=== PATIENT | female | born 1990 | race Caucasian/White ===

== ENCOUNTER 2018-06-15 05:35 | Inpatient (IN) ==
--- OUTSIDE RECORDS SUMMARY | 2018-06-15 05:52 | External Medical Summary | Continuity of Care Document ---
:1990 Author Organization [facility] Address [address] [place], [place] [id number] Phone Care Team Providers Name Role Phone Misael Chandra MD Unavailable Unavailable Allergies, Adverse Reactions, Alerts Substance Reaction Severity Status Substance Type Unknown Medications Medication Instructions Dosage Effective Dates Status Comments (start - stop) 28 mg take 1 tablet by Not Available - Active iron-800 mcg oral route every tablet day Problems Condition Effective Dates (start - stop) Clinical Status Previous Low Transverse - Encounter for suprvsn of normal - , third trimester 31 weeks gestation of - Previous Low Transverse - Encntr screen for infections w sexl - mode of transmiss Encounter for screening for oth - infec/parastc diseases Encounter for suprvsn of normal - , first trimester Encounter For Other Specified - Screening 9 weeks gestation of - Previous Low Transverse - Encounter for suprvsn of normal - , first trimester 13 weeks gestation of - Previous Low Transverse - Encounter for suprvsn of normal - , third trimester 31 weeks gestation of - Previous Low Transverse - Encounter for suprvsn of normal - , second trimester 19 weeks gestation of - Previous Low Transverse - Encounter for suprvsn of normal - , third trimester 28 weeks gestation of - Previous Low Transverse - Encounter for suprvsn of normal - , second trimester 19 weeks gestation of - Previous Low Transverse - Encounter for suprvsn of normal - , third trimester 33 weeks gestation of - Encounter for suprvsn of normal - , second trimester 23 weeks gestation of - Polycystic Ovarian Syndrome Active Human Papilloma Virus Active Procedures Procedure Date OB Visit No Charge - HTML DEVELOPER Results Test Name Date and Time Measure Units Reference Range Abnormal Flag Comments Unknown Advance Directives Directive Yes / No Effective Date File Name Unknown Encounters Encounter Practice Location Reason(s) Diagnoses Date Provider Care Team Description For Visit Members [facility]ader Previous Low Champ-2 Bronwyn Referring In Womens Transverse 5-201 Josie. Provider: Stacy Canela-SectionEncounte 8 700 Josie [address] r for suprvsn of Medical Bronwyn L, 1522, normal , Center [address] [place] [address], third [email or web address] Aaron Yates, weeks gestation 120, [place] [id number], [facility], [place] Nader PINO, tel:[phone] [place], [id number] , [place]. [id number]. tel: tel:[phone] Associates [facility]ader Previous Low Champ-0 Bronwyn Referring In Womens Transverse 7-201 Josie. Provider: Stacy Canela-SectionEncounte 8 700 Josie PO Box r for suprvsn of Medical Bronwyn L, 1522, normal , Center [address] [place], third [email or web address] Aaron Yates, weeks gestation 120, Center [id number], [facility], [place] Nader PINO, tel:[phone] [place], [id number] , [place]. [id number]. tel: tel:[phone] Associates [facility]ader Previous Low Champ-0 Bronwyn Referring In Womens Ultrasound Transverse 7-201 Josie. Provider: Zenon SIMENTAL, C-SectionEncounte 8 700 Josie PO Box r for suprvsn of Medical Bronwyn L, 1522, normal , Center [address] [place], third [email or web address] Dr [facility] Katharine PINO, weeks gestation 120, Center [id number], of Doe, Aaron 120, [place] Nader PINO, tel:[phone] [place], , [place]. [id number]. tel: tel: [phone] Associates Nader Previous Low May-1 Bronwyn Referring In Womens Transverse 8-201 Josie. Provider: Health KAMILLE, C-SectionEncounte 8 700 Josie PO Box r for suprvsn of Medical Bronwyn L, 1522, normal , Center [address] [place], [place] [address], third [email or web address] Aaron Yates, weeks gestation 120, Center [id number], of Doe, [facility] 120, [place] Nader PINO, tel:[phone] [place], , [place]. [id number]. tel: tel: [phone] Cortez Doe Encounter for Apr-1 Miguel Referring In Womens suprvsn of normal 7-201 Dagoberto. 700 Provider: Zenon SIMENTAL, , second 8 Medical Josie PO Box [email or web address] weeks Center Bronwyn L, 1522, gestation of Aaron Yates, 120, Medical Nader PINO, [place] [id number], [place], [facility] 120, [place] [id number] Nader, tel: , [place]. [place], tel: [phone]. [id number] tel:[phone] Cortez Doe Previous Low Mar-1 Bronwyn Referring In Womens Transverse 5-201 Josie. Provider: Zenon SIMENTAL, C-SectionEncounte 8 700 Josie PO Box r for suprvsn of Medical [place]wyn L, 1522, normal , Center [address] [place], [place] [address], second Aaron Yates, [id number] weeks 120, Center [id number], gestation of Nader, [facility] 120, [place] Nader PINO, tel:[phone] [place], , [place]. [id number]. tel: tel:[phone] Associates [facility]ader Previous Low Mar-1 Bronwyn Referring In Womens Ultrasound Transverse 5-201 Josie. Provider: Zenon SIMENTAL, C-SectionEncounte 8 700 Josie PO Box r for suprvsn of Medical Bronwyn L, 1522, normal , Center [address] [place] [address], second , [facility] Katharine PINO, [email or web address] weeks 120, Center [id number], gestation of Doe, [facility] 120, [place] Nader PINO, tel: [phone] [place], , [place]. [id number]. tel: tel:[phone] Associates [facility] Previous Low Feb-0 Bronwyn Referring In Womens Transverse 6-201 Josie. Provider: Zenon SIMENTAL, C-SectionEncounte 8 700 Josie PO Box r for suprvsn of Medical Bronwyn L, 1522, normal , Center [address] [place] [address], first [email or web address] Dr, [facility] [place]TE, weeks gestation 120, Center [id number], of Doe, [facility] 120, [place] Nader PINO, tel: [phone] [place], , [place]. [id number]. tel: tel: [phone] Associates [facility] Previous Low James-0 Bronwyn Referring In Womens Transverse 9-201 Josie. Provider: Zenon SIMENTAL, C-SectionEncntr 8 700 Josie PO Box screen for Medical Bronwyn L, 1522, infections w sexl [facility] [place], mode of [facility] ODETTE, transmissEncounte 120, [place] [id number], r for screening Doe, [facility] 120, [place] for oth Nader PINO, tel: infec/parastc [phone] [place], [facility] , [place]. [id number]. for suprvsn of tel: tel:[phone] normal , [phone] first trimesterEncounte r For Other Specified Screening9 weeks gestation of Family History Family Member Diagnosis Age At Onset Paternal Grandmother Ovarian Cancer Paternal Grandmother Thyroid Disorder No family history of Lung Disease No family history of Colon Cancer No family history of Breast Cancer No family history of Hypertension Father Cardiovascular Disease No family history of Uterine Cancer Maternal Grandmother Stroke No family history of Kidney Disease No family history of Epilepsy No family history of Diabetes No family history of Osteoporosis Immunizations Vaccine Date Status Comments Unknown Payers Payer name Insurance type Covered democrat ID Authorization(s) BC Out Of State [id number] Social History Type Description Quantity Date Captured Alcohol Use Details No Caffeine Use Details Unknown Tobacco Use Status Smoking Status Former smoker Vital Signs Date / Height Weight BMI Pulse Blood Temperature Respiratory Body Head BMI Time: Rate Pressure Rate Surface Circumference percentile Area 272.10 49.7 132/82 -2018 lbs 6 mm[Hg] 2:36 kg/m PM eter (2) 272.10 49.7 -2018 lbs 6 2:21 kg/m PM eter (2) Chief Complaint And Reason For Visit Unknown Chief Complaint And Reason For Visit Reason For Referral Reason For Referral Unknown Plan Of Care Date Type Action Status Appointment Alejandra Sanderson BOOKED Appointment Alejandra Sanderson BOOKED Appointment Maria E Alejandra [facility] R C/S BOOKED Future Order: Radiology Order Ultrasound OB Follow-up ([id number]) Ordered Future Order: Radiology Order Complete OB Ultrasound > 14 Weeks Ordered ([id number]) Date Type Problem Goal Intervention Status Start Date Unknown. History Of Present Illness Encounter Date Complaint History Of Present Illness This patient has no known history of present illness Functional Status Encounter Date Functional Assessment Cognitive Assessment Unknown Medications Administered Medication Instructions Dosage Effective Dates (start - stop) Status Comments Drug Treatment Unknown Instructions Date Instruction Additional Information HIV and other routine tests risk factors identified by history anticipated course of care nutrition and weight gain counseling, special diet toxoplasmosis precautions (cats / raw meat) sexual activity exercise indications for ultrasound influenza vaccine environmental / work hazards travel use of any medications (including supplements, vitamins, herbs, OTC drugs) domestic violence seat belt use childbirth classes / hospital facilities hospital registration genetic testing new ob handbook risks
--- OUTSIDE RECORDS SUMMARY | 2018-06-15 05:52 | External Medical Summary | Continuity of Care Document ---
:1988 Author Organization [facility] Address [address] [place], [place] [id number] Phone Care Team Providers Name Role Phone Misael Chandra MD Unavailable Unavailable Allergies, Adverse Reactions, Alerts Substance Reaction Severity Status Substance Type Unknown Medications Medication Instructions Dosage Effective Dates (start - stop) Status Comments Drug Treatment Unknown Problems Condition Effective Dates (start - stop) Clinical Status Polycystic Ovarian Syndrome Active Human Papilloma Virus Active Procedures Procedure Date Unknown Results Test Name Date and Time Measure Units Reference Range Abnormal Flag Comments Unknown Advance Directives Directive Yes / No Effective Date File Name Unknown Encounters Encounter Practice Location Reason(s) Diagnoses Date Provider Care Team Description For Visit Members [facility] 2017 Marilyn. SIMENTAL, [address] [facility] 1522, [place] Fredrick Yates [place], [facility] 120, [id number], [place] Doe, tel:[phone], 4540 [place]. tel:[phone] Family History Family Member Diagnosis Age At [...] Unknown Payers Payer name Insurance type Covered alliance party ID Authorization(s) Unknown Social History Type Description Quantity Date Captured Alcohol Use Details No Caffeine Use Details Unknown 4 cups per day Tobacco Use Status Unknown Smoking Status Unknown Vital Signs Date / Height Weight BMI Pulse Blood Temperature Respiratory Body Head BMI Time: Rate Pressure Rate Surface Circumference percentile Area Unknown Chief Complaint And Reason For Visit Unknown Chief Complaint And Reason For Visit Reason For Referral Reason For Referral Unknown Plan Of Care Date Type Action Status Appointment Maria E Alejandra BOOKED Date Type Problem Goal Intervention Status Start Date Unknown. History Of Present Illness Encounter Date Complaint History Of Present Illness This patient has no known history of present illness Functional Status Encounter Date Functional Assessment Cognitive Assessment Unknown Medications Administered Medication Instructions Dosage Effective Dates (start - stop) Status Comments Drug Treatment Unknown Instructions Date Instruction Additional Information Unknown
--- OUTSIDE RECORDS SUMMARY | 2018-06-15 05:52 | External Medical Summary | Continuity of Care Document ---
:1988 Author Organization [facility] Address [address] [place], [place] [id number] Phone Care Team Providers Name Role Phone [...] Description For Visit Members [facility] 2017 [address]. 700 [place], [address]22, [place] Fredrick Yates [place], [facility] 120, [id number], [place] Doe, tel:[phone], 6790 [place]. tel:[phone] Family History Family Member Diagnosis Age At [...]
--- OUTSIDE RECORDS SUMMARY | 2018-06-15 05:52 | External Medical Summary | Continuity of Care Document ---
:1990 Author Organization [facility] Address [address] [place], [place] [phone] Phone Care Team Providers Name Role Phone Misael Chandra MD Unavailable Unavailable Allergies, Adverse Reactions, Alerts Substance Reaction Severity Status No Known Drug Allergies Unknown Active Medications Medication Instructions Dosage Effective Dates Status Comments (start - stop) 28 mg take 1 tablet by Not Available - Active iron-800 mcg oral route every tablet day Problems Condition Effective Dates (start - stop) Clinical Status Previous Low Transverse - Encounter for suprvsn of normal - , third trimester 33 weeks gestation of - Previous Low Transverse - Encntr screen for infections w sexl - mode of transmiss Encounter for screening for oth - infec/parastc diseases Encounter for suprvsn of normal - , first trimester Encounter For Other Specified - Screening 9 weeks gestation of - Morbid (severe) obesity due to excess - calories Previous Low Transverse - Encounter For Screening For - Streptococcus B 35 weeks gestation of - Previous Low Transverse [...] gestation of - Previous Low Transverse - Obesity complicating , third - trimester Encounter for suprvsn of normal - , third trimester 35 weeks gestation of - Previous Low Transverse - Encounter for suprvsn of normal - , second trimester 19 weeks gestation of - Encounter for suprvsn of normal - , second trimester 23 weeks gestation of - Polycystic Ovarian Syndrome Active Human Papilloma Virus Active Procedures Procedure Date OB Visit No Charge Results Test Name Date and Time Measure Units Reference Range Abnormal Flag Comments Unknown Advance Directives Directive Yes / No Effective Date File Name Unknown Encounters Encounter Practice Location Reason(s) Diagnoses Date Provider Care Team Description For Visit Members Cortez Doe Morbid (severe) Bronwyn Referring In Womens obesity due to 9-201 Josie. Provider: Zenon SIMENTAL, excess 8 700 Josie PO Box caloriesPrevious Medical Bronwyn L, 152, Low Transverse Center 700 [place], C-SectionEncounte , [facility] Medical [place], r For 120, Center [id number], Screening For Doe, Aaron 120, [place] Streptococcus B35 Nader PINO, tel:2 weeks gestation [id number] [place], [id number] of , [place]. [id number]. tel: tel: [phone] Associates Nader Previous Low Bronwyn Referring In Womens Ultrasound Transverse 9-201 Josie. Provider: Zenon SIMENTAL C-SectionObesity 8 700 Josie PO Box complicating Medical Bronwyn L, 1522, , third Center 700 [place], [address] Dr [place] [facility] [place], r for suprvsn of 120, Center [id number], normal , Doe, [facility] 120, [place] third [email or web address] Nader PINO, tel:[phone] weeks gestation [phone] [place], of , [place]. [id number]. tel: tel:[phone] Cortez Doe Previous Low Champ-2 Bronwyn Referring In Womens Transverse 5-201 Josie. Provider: Health [place], C-SectionEncounte 8 700 Josie PO Box r for suprvsn of Medical Bronwyn L, 1522, normal , Center 700 [place], third [id number] Dr [place] [facility] [place], weeks gestation 120, Center [id number], of Doe, Aaron 120, [place] KSNader, tel:[phone] [place], , [place]. [id number]. tel: tel:[phone] Cortez Doe Previous Low Champ-0 Bronwyn Referring In Womens Transverse 7-201 Josie. Provider: Health KAMILLE, C-SectionEncounte 8 700 Josie PO Box r for suprvsn of Medical Bronwyn L, 1522, normal , Center 700 [place], third [email or web address] Dr [facility] Katharine PINO, weeks gestation 120, Center [id number], of Doe, Aaron 120, [place] Nader PINO, tel:[phone] [place], , [place]. [id number]. tel: tel:[phone] Cortez Doe Previous Low Champ-0 Bronwyn Referring In Womens Ultrasound Transverse 7-201 Josie. Provider: Health KAMILLE, C-SectionEncounte 8 700 Josie PO Box r for suprvsn of Medical Bronwyn L, 1522, normal , Center 700 [place], third [email or web address] Dr [facility] Katharine PINO, weeks gestation 120, Center [id number], of Doe, Aaron 120, [place] Nader PINO, tel:[phone] [place], , [place]. [id number]. tel: tel: [phone] Associates Nader Previous Low May-1 Bronwyn Referring In Womens Transverse 8-201 Josie. Provider: Health KMAILLE, C-SectionEncounte 8 700 Josie PO Box r for suprvsn of Medical Bronwyn L, 1522, normal , Center 700 [place], third [email or web address] Aaron Yates, weeks gestation 120, Center , of Doe, [facility] 120, [place] Nader PINO, tel:[phone] [place], , [place]. [id number]. tel: tel: [phone] Associates Nader Encounter for Apr-1 Miguel Referring In Womens suprvsn of normal 7-201 Dagoberto. 700 Provider: Zenon SIMENTAL, , second 8 Medical Josie PO Box [email or web address] weeks Center [facility] L, 1522, gestation of Aaron Yates [place], 120, Medical Nader PINO, May [id number], [place], [facility] 120, [place] [id number] Nader, tel: , [place]. [place], tel: [phone]. [id number] tel:[phone] Associates Nader Previous Low Mar-1 Bronwyn Referring In Womens Transverse 5-201 Josie. Provider: Zenon SIMENTAL, C-SectionEncounte 8 700 Josie PO Box r for suprvsn of Medical Bronwyn L, 1522, normal , Center 700 [place], second Aaron Yates, [email or web address] weeks 120, Center [id number], gestation of Doe, Aaron 120, [place] Nader PINO, tel:[phone] [place], , [place]. [id number]. tel: tel: [phone] Associates Nader Previous Low Mar-1 Bronwyn Referring In Womens Ultrasound Transverse 5-201 Josie. Provider: Health KAMILLE, C-SectionEncounte 8 700 Josie PO Box r for suprvsn of Medical Bronwyn L, 1522, normal , Center 700 [place], second Aaron Yates, [email or web address] weeks 120, Center , gestation of Nader, [facility] 120, [place] Nader PINO, tel: [phone] [place], , [place]. [id number]. tel: tel: [phone] Associates Nader Previous Low Feb-0 Bronwyn Referring In Womens Transverse 6-201 Josie. Provider: Zenon SIMENTAL, C-SectionEncounte 8 700 Josie PO Box r for suprvsn of Medical Bronwyn L, 1522, normal , Center 700 [place], first [id number] Dr, Aaron PINO, weeks gestation 120, May [id number], of Doe, [facility] 120, [place] Nader PINO, tel: [phone] [place], , [place]. [id number]. tel: tel: [phone] Associates Nader Previous Low James-0 Bronwyn Referring In Womens Transverse 9-201 Josie. Provider: Zenon SIMENTAL, C-SectionEncntr 8 700 Josie PO Box screen for Medical Bronwyn L, 1522, infections w sexl Center 700 [place], mode of Aaron Yates, transmissEncounte 120, May [id number], r for screening [facility] 120, for oth Nader PINO, tel: infec/parastc [phone] [place], [facility] Hospital[facility] , [place]. [id number]. for suprvsn of tel: tel:[phone] normal , [phone] first trimesterEncounte r For Other Specified Screening9 [...] of Osteoporosis Immunizations Vaccine Date Status Comments Tdap completed Source: New Immunization Record Payers Payer name Insurance type Covered green party ID Authorization(s) BCBS Out Of State [id number] BCBS Out Of [place] [id number] Social History Type Description Quantity Date Captured Alcohol Use Details No Caffeine Use Details Unknown Tobacco Use Status Smoking Status Former smoker Vital Signs Date / Height Weight BMI Pulse Blood Temperature Respiratory Body Head BMI Time: Rate Pressure Rate Surface Circumference percentile Area 274.50 50.2 -2018 lbs 0 3:15 kg/m PM eter (2) 274.50 50.2 130/82 -2018 lbs 0 mm[Hg] 4:12 kg/m PM eter (2) Chief Complaint And Reason For Visit Unknown Chief Complaint And Reason For Visit Reason For Referral Reason For Referral Unknown Plan Of Care Date Type Action Status Appointment Maria E February [facility] R C/S BOOKED Future Order: Radiology Order Ultrasound OB Follow-up ([id number]) Ordered Future Order: Radiology Order Ultrasound, OB Limited ([id number]) Ordered Future Order: Radiology Order Complete OB Ultrasound > 14 Weeks Ordered ([id number]) Date Type Problem Goal Intervention Status Start [...]
--- OUTSIDE RECORDS SUMMARY | 2018-06-15 05:52 | External Medical Summary | Continuity of Care Document ---
:1990 Author Organization [facility] Address [address] [place], [place] [id number] Phone Care Team Providers Name Role Phone [...] Human Papilloma Virus Active Procedures Procedure Date Ultrasnd preg uterus, flwup/repeat Results Test Name Date and Time Measure Units Reference Range Abnormal Flag Comments Unknown Advance Directives Directive Yes / No Effective Date File Name Unknown Encounters Encounter Practice Location Reason(s) Diagnoses Date Provider Care Team Description For Visit Members Cortez Doe Previous Low Champ-2 Bronwyn Referring In Womens Transverse 5-201 Josie. Provider: Health KAMILLE C-SectionEncounte 8 700 Josie PO Box r for suprvsn of Medical Bronwyn L, 1522, normal , Center 700 [place], third [id number] Aaron Yates, weeks gestation 120, Center [id number], [facility] [place] Nader PINO, tel:[phone] [place], [address] , [place]. [id number]. tel: tel:[phone] Cortez Doe Previous Low Champ-0 Bronwyn Referring In Womens Transverse 7-201 Josie. Provider: Zenon SIMENTAL C-SectionEncounte 8 700 Josie PO Box r for suprvsn of Medical Bronwyn L, 1522, normal , Center 700 [place], third [id number] Aaron Yates, weeks gestation 120, Center [id number], [facility] 120, [place] Nader PINO, tel:[phone], [address]683 , [place]. [id number]. tel: tel:[phone] Cortez Doe Previous Low Champ-0 Bronwyn Referring In Womens Ultrasound Transverse 7-201 Josie. Provider: Health KAMILLE, C-SectionEncounte 8 700 Josie PO Box r for suprvsn of Medical Bronwyn L, 1522, normal , Center [address] [place], [place] [address], third [email or web address] Aaron Yates [facility] [place], weeks gestation 120, Center [id number], of Doe, Aaron 120, [place] Nader PINO, tel:[phone] [place], , [place]. [id number]. tel: tel: [phone] Associates Nader Previous Low May-1 Bronwyn Referring In Womens Transverse 8-201 Josie. Provider: Zenon SIMENTAL, C-SectionEncounte 8 700 Josie PO Box r for suprvsn of Medical Bronwyn L, 1522, normal , Center [address] [place], [place] [address], third [id number] Aaron Yates, weeks gestation 120, Center , of Doe, Aaron 120, [place] Nader PINO, tel:[phone] [place], , [place]. [id number]. tel: tel: [phone] Cortez Doe Encounter for Apr-1 Miguel Referring In Womens suprvsn of normal 7-201 Dagoberto. 700 Provider: Zenon SIMENTAL, , second 8 Medical Josie PO Box [email or web address] weeks Center Bronwyn L, 1522, gestation of Aaron Yates, 120, Medical Nader PINO, [place] [id number], [place], Aaron 120, [place] [id number] Nader, tel: , [place]. [place], tel: [phone]. [id number] tel:[phone] Cortez Doe Previous Low Mar-1 Bronwyn Referring In Womens Transverse 5-201 Josie. Provider: Zenon SIMENTAL, C-SectionEncounte 8 700 Josie PO Box r for suprvsn of Medical Bronwyn L, 1522, normal , Center [address] [place] [address], second Aaron Yates, [email or web address] weeks 120, Center [id number], gestation of Nader, [facility] 120, [place] Nader PINO, tel:[phone] [place], , [place]. [id number]. tel: tel:+ [phone] Associates Nader Previous Low Mar-1 Bronwyn Referring In Womens Ultrasound Transverse 5-201 Josie. Provider: Zenon SIMENTAL, C-SectionEncounte 8 700 Josie PO Box r for suprvsn of Medical Bronwyn L, 1522, normal , Center [address] [place] [address], second Aaron Yates, [email or web address] weeks 120, Center [id number], gestation of [facility] 120, [place] Nader PINO, tel:+ [phone] [place], , [place]. [id number]. tel: tel:[phone] Associates Nader Previous Low Feb-0 Bronwyn Referring In Womens Transverse 6-201 Josie. Provider: Zenon SIMENTAL, C-SectionEncounte 8 700 Josie PO Box r for suprvsn of Medical Bronywn L, 1522, normal , Center [address] [place] [address], first [email or web address] Aaron Yates, weeks gestation 120, [place] [id number], of [facility] 120, [place] Nader PINO, tel:+ [phone] [place], , [place]. [id number]. tel: tel:[phone] Associates Nader Previous Low James-0 Bronwyn Referring In Womens Transverse 9-201 Josie. Provider: Zenon SIMENTAL, C-SectionEncntr 8 700 Josie PO Box screen for Medical Bronwyn L, 1522, infections w sexl Center [address] [place] [address], mode of Aaron Yates, transmissEncounte 120, [place] [id number], r for screening [facility] 120, [place] for oth Nader PINO, tel:[phone] infec/parastc [phone] [place], [facility] , [place]. [id number]. for suprvsn of tel: tel:[phone] normal , [phone] first trimesterEncounte r For Other Specified Screening9 [...] Unknown Payers Payer name Insurance type Covered green party ID Authorization(s) BCBS Out Of State [id number] Social History Type Description Quantity Date Captured Unknown Vital Signs Date / Height Weight BMI Pulse Blood Temperature Respiratory Body Head BMI Time: Rate Pressure Rate Surface Circumference percentile Area Unknown Chief Complaint And Reason For Visit Unknown Chief Complaint And Reason For Visit Reason For Referral Reason For Referral Unknown Plan Of Care Date Type Action Status Appointment Maria E February BOOKED Appointment Maria E February BOOKED Appointment Maria E Alejandra [facility] R C/S BOOKED Future Order: Radiology Order Ultrasound OB Follow-up ([id number]) Ordered Future Order: Radiology Order Complete OB Ultrasound > 14 Weeks Ordered ([id number]) Date Type Problem Goal Intervention Status Start [...]
--- OUTSIDE RECORDS SUMMARY | 2018-06-15 05:52 | External Medical Summary | Continuity of Care Document ---
:1990 Author Organization [facility] Address [address] [place], [place] [id number] Phone Care Team Providers Name Role Phone [...] For Visit Members Associates Nader Previous Low Champ-0 Bronwyn Referring In Womens Transverse 7-201 Josie. Provider: Zenon SIMENTAL C-SectionEncounte 8 700 Josie PO Box r for suprvsn of Medical Bronwyn L, 1522, normal , Center [address] [place] [address], third [email or web address] Aaron Yates, weeks gestation 120, [place] [id number], of [facility] 120, [place] KYNader, tel:[phone] [place], [address] , [place]. [id number]. tel: tel:[phone] Associates Nader Previous Low Champ-0 Bronwyn Referring In Womens Ultrasound Transverse 7-201 Josie. Provider: Zenon SIMENTAL C-SectionEncounte 8 700 Josie PO Box r for suprvsn of Medical Bronwyn L, 1522, normal , Center [address] [place] [address], third [email or web address] Aaron Yates, weeks gestation 120, [place] [id number], of [facility] 120, [place] KYNader, tel:[phone] [facility] [address] , [place]. [id number]. tel: tel:[phone] Associates Nader Previous Low March- Bronwyn Referring In Womens Transverse 8-201 Josie. Provider: Zenon SIMENTAL C-SectionEncounte 8 700 Josie PO Box r for suprvsn of Medical Bronwyn L, 1522, normal , Center [address] [place] [address], third [email or web address] Dr, [facility] [place], weeks gestation 120, Center [id number], of Doe, Aaron 120, [place] ODETTENader, tel:[phone] [place], , [place]. [id number]. tel: tel:[phone] Associates Nader Encounter for Apr-1 Miguel Referring In Womens suprvsn of normal 7-201 Dagoberto. 700 Provider: Zenon SIMENTAL, , second 8 Medical Josie PO Box weeks Center Bronwyn L, 1522, gestation of Aaron Yates, 120, Medical Nader PION, [place] [id number], [place], [facility] 120, [place] [id number] Nader, tel: , [place]. [place] tel:[phone]. [id number] tel:[phone] Associates Nader Previous Low Mar-1 Bronwyn Referring In Womens Transverse 5-201 Josie. Provider: Zenon SIMENTAL, C-SectionEncounte 8 700 Josie PO Box r for suprvsn of Medical Bronwyn L, 1522, normal , Center 700 [place], second Aaron Yates, [email or web address] weeks 120, Center [id number], gestation of Doe, [facility] 120, [place] Nader, tel:[phone] [place], , [place]. [id number]. tel: tel:[phone] Associates Nader Previous Low Mar-1 Bronwyn Referring In Womens Ultrasound Transverse 5-201 Josie. Provider: Zenon SIMENTAL, C-SectionEncounte 8 700 Josie PO Box r for suprvsn of Medical Bronwyn L, 1522, normal , Center 700 [place], second Aaron Yates, [id number] weeks 120, Center [id number], gestation of Doe, [facility] 120, [place] ODETTENader, tel:[phone] [place], , [place]. [id number]. tel: tel:[phone] Associates Nader Previous Low Feb-0 Bronwyn Referring In Womens Transverse 6-201 Josie. Provider: Zenon SIMENTAL, C-SectionEncounte 8 700 Josie PO Box r for suprvsn of Medical Bronwyn L, 1522, normal , Center 700 [place], first [email or web address] Dr, Aaron PINO, weeks gestation 120, Center [id number], of Doe, [facility] 120, [place] Nader PINO, tel:+ [phone] [place], , [place]. [id number]. tel: tel:+ [phone] Associates Nader Previous Low Nov- Bronwyn Referring In Womens Transverse 9-201 Josie. Provider: Health KAMILLE, C-SectionEncntr 8 700 Josie PO Box screen for Medical Bronwyn L, 1522, infections w sexl Center 700 [place], mode of Aaron Yates, transmissEncounte 120, [place] [id number], r for screening [facility] 120, [place] for oth [place] Doe, tel: infec/parastc [phone] [place], [facility] , [place]. [id number]. for suprvsn of tel: tel:[phone] normal , [phone] first trimesterEncounte r For Other Specified Screening9 [...] Unknown Payers Payer name Insurance type Covered libertarian ID Authorization(s) BC Out Of State [id number] Social History Type Description Quantity Date Captured Alcohol Use Details No Caffeine Use Details Unknown Tobacco Use Status Smoking Status Former smoker Vital Signs Date / Height Weight BMI Pulse Blood Temperature Respiratory Body Head BMI Time: Rate Pressure Rate Surface Circumference percentile Area 270.80 49.5 152/80 -2018 lbs 2 mm[Hg] 1:40 kg/m PM eter (2) Chief Complaint And Reason For Visit Unknown Chief Complaint And Reason For Visit Reason For Referral Reason For Referral Unknown Plan Of Care Date Type Action Status Appointment Alejandra Sanderson BOOKED Future Order: Radiology Order Ultrasound OB Follow-up ([id number]) Ordered Future Order: Radiology Order Complete OB Ultrasound > 14 Weeks Ordered ([id number]) Date Type Problem Goal Intervention Status Start [...]
--- OUTSIDE RECORDS SUMMARY | 2018-06-15 05:52 | External Medical Summary | Continuity of Care Document ---
:1990 Author Organization [facility] Address [address] [place], [place] [id number] Phone Care Team Providers Name Role Phone Misael Chandra MD Unavailable Unavailable Allergies, Adverse Reactions, Alerts Substance Reaction Severity Status Substance Type Unknown Medications Medication Instructions Dosage Effective Dates Status Comments (start - stop) 28 mg take 1 tablet by Not Available - Active iron-800 mcg oral route every tablet day Problems Condition Effective Dates (start - stop) Clinical Status Encounter for suprvsn of normal - , second trimester 23 weeks gestation of - Previous Low Transverse [...] second trimester 19 weeks gestation of - Polycystic Ovarian Syndrome Active Human Papilloma Virus Active Procedures Procedure Date OB Visit No Charge Automated hemogram (CBC) Glucose test Venpnctr fngr/heel/ear stick routne Results Test Name Date and Time Measure Units Reference Range Abnormal Flag Comments Panel Description: CBC With Differential/Platelet WBC 16:06:00 8.7 x10E3/uL 3.4-10.8 RBC 16:06:00 4.32 x10E6/uL 3.77-5.28 Hemoglobin 16:06:00 12.1 g/dL 11.1-15.9 Hematocrit 16:06:00 37.4 % 34.0-46.6 MCV 16:06:00 87 fL 79-97 MCH 16:06:00 28.0 pg 26.6-33.0 MCHC 16:06:00 32.4 g/dL 31.5-35.7 RDW 16:06:00 13.4 % 12.3-15.4 Platelets 16:06:00 271 x10E3/uL 150-379 Neutrophils 16:06:00 79 % Not Estab. Lymphs 16:06:00 15 % Not Estab. Monocytes 16:06:00 5 % Not Estab. Eos 16:06:00 1 % Not Estab. Basos 16:06:00 0 % Not Estab. Immature Cells 16:06:00 Neutrophils (Absolute) 16:06:00 6.8 x10E3/uL 1.4-7.0 Lymphs (Absolute) 16:06:00 1.3 x10E3/uL 0.7-3.1 Monocytes(Absolute) 16:06:00 0.5 x10E3/uL 0.1-0.9 Eos (Absolute) 16:06:00 0.1 x10E3/uL 0.0-0.4 Baso (Absolute) 16:06:00 0.0 x10E3/uL 0.0-0.2 Immature Granulocytes 16:06:00 0 % Not Estab. Immature Grans (Abs) 16:06:00 0.0 x10E3/uL 0.0-0.1 NRBC 16:06:00 Hematology Comments: 16:06:00 Panel Description: Glucose [Mass/volume] in Serum or Plasma --1 hour post 50 g glucose PO Gestational Diabetes Screen 16:06:00 102 mg/dL 65-135 Advance Directives Directive Yes / No Effective Date File Name Unknown Encounters Encounter Practice Location Reason(s) Diagnoses Date Provider Care Team Description For Visit Members Cortez Doe Encounter for Miguel Referring In Womens suprvsn of normal 7-201 Dagoberto. 700 Provider: Zenon SIMENTAL, , second 8 Medical Josie PO Box [id number] weeks [facility], 1522, gestation of Aaron Yates [place], 120, Medical [facility] [id number], [facility] 120, [place] [id number] Nader, tel: , . [place], tel: [phone]. [id number] tel:[phone] Associates Nader Previous Low Mar-1 Bronwyn Referring In Womens Transverse 5-201 Josie. Provider: Zenon SIMENTAL C-SectionEncounte 8 700 Josie PO Box r for [facility]n of [facility] , 1522, normal , [place] [address] [facility] [place], [email or web address] weeks 120, [place] [id number], [facility], [place] Nader PINO, tel: [phone] [facility] , . [id number]. tel: tel: [phone] Associates Nader Previous Low Mar-1 Bronwyn Referring In Womens Ultrasound Transverse 5-201 Josie. Provider: Zenon SIMENTAL C-SectionEncounte 8 700 Josie PO Box r for suprvsn of [facility], 1522, normal , Center [address] [facility] Katharine PINO, [id number] weeks 120, [place] [id number], gestation of Nader Aaron 120, [place] Nader PINO, tel: [phone] [place], , [place]. [id number]. tel: tel: [phone] Associates Nader Previous Low Feb-0 Bronwyn Referring In Womens Transverse 6-201 Josie. Provider: Zenon SIMENTAL, C-SectionEncounte 8 700 Josie PO Box r for suprvsn of Medical Bronwyn L, 1522, normal , Center 700 [place], first [email or web address] Dr, [facility] OD[place], weeks gestation 120, Center [id number], of Doe, Aaron 120, [place] Nader PINO, tel: [phone] [place], , [place]. [id number]. tel: tel: [phone] Associates Nader Previous Low James-0 Bronwyn Referring In Womens Transverse 9-201 Josie. Provider: Zenon SIMENTAL, C-SectionEncntr 8 700 Josie PO Box screen for Medical Bronwyn L, 1522, infections w sexl Center 700 [place], mode of Dr [facility], transmissEncounte 120, [place] [id number], r for screening [facility] 120, [place] for oth Nader PINO, tel: infec/parastc [phone] [place], [facility] Cent[facility] , [place]. [id number]. for suprvsn of tel: tel:[phone] normal , [phone] first trimesterEncounte r For Other Specified Screening9 [...] Insurance type Covered alliance party ID Authorization(s) BCBS Out Of State [id number] Social History Type Description Quantity Date Captured Alcohol Use Details No Caffeine Use Details Unknown Tobacco Use Status Smoking Status Former smoker Vital Signs Date / Height Weight BMI Pulse Blood Temperature Respiratory Body Head BMI Time: Rate Pressure Rate Surface Circumference percentile Area 276.10 50.4 2018 lbs 9 3:07 kg/m PM eter (2) Chief Complaint And Reason For Visit Unknown Chief Complaint And Reason For Visit Reason For Referral Reason For Referral Unknown Plan Of Care Date Type Action Status Appointment Alejandra Sanderson BOOKED Future Order: Radiology Order Complete OB Ultrasound > 14 Weeks Ordered ([id number]) Date Type Problem Goal Intervention Status Start [...]
--- OUTSIDE RECORDS SUMMARY | 2018-06-15 05:52 | External Medical Summary | Continuity of Care Document ---
:1988 Author Organization [facility] Address [address] [place], [place] [id number] Phone Care Team Providers Name Role Phone [...] stop) Clinical Status Previous Low Transverse - Obesity complicating , [...] - calories Previous Low Transverse - Encounter for suprvsn of normal - , third trimester 37 weeks gestation of - Morbid (severe) obesity [...] suprvsn of normal - , third trimester 36 weeks gestation of - Previous Low Transverse [...] Papilloma Virus Active Procedures Procedure Date Ultrasnd exam, preg uterus, limited Results Test Name Date and Time Measure Units Reference Range Abnormal Flag Comments Unknown Advance Directives Directive Yes / No Effective Date File Name Unknown Encounters Encounter Practice Location Reason(s) Diagnoses Date Provider Care Team Description For Visit Members Associates Nader Morbid (severe) Bronwyn Referring In Womens obesity due to 3-201 Josie. Provider: Zenon SIMENTAL, rosendo 8 700 Josie PO Box caloriesPrevious Medical Bronwyn L, 1522, Low Transverse Center 700 [place], C-SectionEncsorin Yates, [facility] Medical [place], r for suprvsn of 120, Center [id number], normal , Doe, Aaron 120, [place] third [id number] Nader PINO, tel:+[phone] weeks gestation [phone] [place], of , [place]. [id number]. tel: tel:[phone] Associates Nader Previous Low Darryl-1 Bronwyn Referring In Womens Transverse 6-201 Josie. Provider: Zenon SIMENTAL, C-SectionEncounte 8 700 Josie PO Box r for suprvsn of Medical Bronwyn L, 1522, normal , Center 700 [place], third [id number] Dr, [facility], weeks gestation 120, Center , of Doe, Aaron 120, [place] Nader, tel:[phone] [place], , [place]. [id number]. tel: tel:[phone] Associates Nader Morbid (severe) Darryl-0 Bronwyn Referring In Womens obesity due to 9-201 Josie. Provider: Zenon SIMENTAL, excess 8 700 Josie PO Box caloriesPrevious Medical Bronwyn L, 1522, Low Transverse Center 700 [place], C-SectionEncounte , [facility] [place], r For 120, Center [id number], Screening For Doe, Aaron 120, [place] Streptococcus B35 [place] Doe, tel:+2 weeks gestation [phone] [place], of , [place]. [id number]. tel: tel:[phone] Associates Nader Previous Low Darryl-0 Bronwyn Referring In Womens Ultrasound Transverse 9-201 Josie. Provider: Zenon SIMENTAL, C-SectionObesity 8 700 Josie PO Box complicating Medical Bronwyn L, 1522, , third Center 700 [place], trimesterEncounte , [facility], r for suprvsn of 120, Center [id number], normal , Doe, Aaron 120, [place] third [id number] Nader PINO, tel:+[phone] weeks gestation [id number] [place], of , [place]. [id number]. tel: tel:[phone] Associates Nader Previous Low Champ-2 Bronwyn Referring In Womens Transverse 5-201 Josie. Provider: Zenon SIMENTAL, C-SectionEncounte 8 700 Josie PO Box r for suprvsn of Medical Bronwyn L, 1522, normal , Center 700 [place], third [email or web address] Aaron Yates, weeks gestation 120, Center , of Doe, Aaron 120, [place] Nader PINO, tel:[phone] [place], , [place]. [id number]. tel: tel:[phone] Associates Nader Previous Low Champ-0 Bronwyn Referring In Womens Transverse 7-201 Josie. Provider: Zenon SIMENTAL, C-SectionEncounte 8 700 Josie PO Box r for suprvsn of Medical Bronwyn L, 1522, normal , Center 700 [place], third [id number] Aaron Yates, weeks gestation 120, Center , of Doe, Aaron 120, [place] Nader PINO, tel:[phone] [place], , [place]. [id number]. tel: tel:[phone] Associates Nader Previous Low Champ-0 Bronwyn Referring In Womens Ultrasound Transverse 7-201 Josie. Provider: Zenon SIMENTAL, Stacy-SectionEncounte 8 700 Josie PO Box r for suprvsn of Medical Bronwyn L, 1522, normal , Center 700 [place], third [id number] Aaron Yates, weeks gestation 120, Center [id number], of Doe, Aaron 120, [place] Nader PINO, tel:[phone] [place], , [place]. [id number]. tel: tel:[phone] Associates Nader Previous Low May-1 Bronwyn Referring In Womens Transverse 8-201 Josie. Provider: Zenon SIMENTAL, C-SectionEncounte 8 700 Josie PO Box r for suprvsn of Medical Bronwyn L, 1522, normal , Center 700 [place], third [email or web address] Aaron Yates, weeks gestation 120, Center [id number], of Doe, Aaron 120, [place] Nader PINO, tel:[phone] [place], , [place]. [id number]. tel: tel:[phone] Associates Nader Encounter for Apr-1 Miguel Referring In Womens suprvsn of normal 7-201 Dagoberto. 700 Provider: Zenon SIMENTAL, , second 8 Medical Josie PO Box weeks Center [facility] L, 1522, gestation of Aaron Yates, 120, Medical Nader PINO, [place] [id number], [place], [facility] 120, [place] [id number] Nader, tel: , [place]. [place], tel: [phone]. [id number] tel:[phone] Associates Nader Previous Low Mar-1 Bronwyn Referring In Womens Transverse 5-201 Josie. Provider: Zenon SIMENTAL, C-SectionEncounte 8 700 Josie PO Box r for suprvsn of Medical Bronwyn L, 1522, normal , Center [facility] [place], second Aaron Yates, [id number] weeks 120, Center , gestation of [facility] 120, [place] Nader PINO, tel: [phone] [place], , [place]. [id number]. tel: tel:[phone] Associates Nader Previous Low Mar-1 Bronwyn Referring In Womens Ultrasound Transverse 5-201 Josie. Provider: Zenon SIMENTAL, C-SectionEncounte 8 700 Josie PO Box r for suprvsn of Medical Bronwyn L, 1522, normal , Center [facility] [place], [facility] Aaron Yates, [id number] weeks 120, Center [id number], gestation of [facility] 120, [place] ODET[place] Nader, tel: [phone] [place], , [place]. [id number]. tel: tel:[phone] Associates Nader Previous Low Feb-0 Bronwyn Referring In Womens Transverse 6-201 Josie. Provider: Zenon SIMENTAL, C-SectionEncounte 8 700 Josie PO Box r for suprvsn of Medical Bronwyn L, 1522, normal , Center [place], first [email or web address] Aaron Yates, weeks gestation 120, Center [id number], of Nader, [facility] 120, [place] Nader PINO, tel: [phone] [place], , [place]. [id number]. tel: tel:[phone] Associates Nader Previous Low Bronwyn Referring In Womens Transverse 9-201 Josie. Provider: [facility], C-SectionEncntr 8 700 Josie PO Box screen for Medical Bronwyn L, 1522, infections w sexl Center 700 [place], mode of Dr, [facility] Medical [place], transmissEncounte 120, Center [id number], r for screening Doe, [facility] 120, [place] for oth Nader PINO, tel: infec/parastc [phone] [place], diseasesEncounter , [place]. [id number]. for suprvsn of tel: tel:[phone] normal , [phone] first trimesterEncounte r For Other Specified Screening9 [...] Record Payers Payer name Insurance type Covered democrat ID Authorization(s) BCBS Out Of State [id number] BCBS Out Of [place] [id number] Social History Type Description Quantity Date Captured [...] Appointment Alejandra Sanderson BOOKED Appointment Alejandra Sanderson [facility] [place]/S BOOKED Future Order: Radiology Order Ultrasound, OB Limited ([id number]) Ordered Future Order: Radiology Order Ultrasound OB Follow-up ([id number]) Ordered Future Order: Radiology Order Complete OB Ultrasound > 14 Weeks Ordered ([id number]) Date Type Problem Goal Intervention Status Start [...]
--- OUTSIDE RECORDS SUMMARY | 2018-06-15 05:52 | External Medical Summary | Continuity of Care Document ---
:1990 Author Organization [facility] Address [address] [place], [place] [id number] Phone Care Team Providers Name Role Phone Misael Chandra MD Unavailable Unavailable Allergies, Adverse Reactions, Alerts Substance Reaction Severity Status No Known Drug Allergies Unknown Active Medications Medication Instructions Dosage Effective Dates Status Comments (start - stop) 28 mg take 1 tablet by Not Available - Active iron-800 mcg oral route every tablet day Problems Condition Effective Dates (start - stop) Clinical Status Morbid (severe) obesity due to excess - [...] third trimester 37 weeks gestation of - Previous Low Transverse [...] Human Papilloma Virus Active Procedures Procedure Date Immuniz admnin, 1 vac, sngl/combo 19 Yrs + TDAP VACCINE >7 IM OB Visit No Charge Cult, pathgnc orgnsm, screen Results Test Name Date and Time Measure Units Reference Range Abnormal Flag Comments Panel Description: Strep Gp B Culture Strep Gp B Negative Negative Centers for Disease Control Culture 12:14:00 and Prevention (CDC) and [place] Congressof Obstetricians and Gynecologists (ACOG) guidelines for prevention ofperinatal group B streptococcal (GBS) disease specify co-collection ofa vaginal and rectal swab specimen to maximize sensitivity of GBSdetection. Per the CDC and ACOG, swabbing both the lower vagina andrectum substantially increases the yield of detection compared withsampling the vagina alone. .Penicillin G, ampicillin, or cefazolin are indicated for intrapartumprophylaxis of GBS colonization. Reflex susceptibilitytesting should be performed prior to use of clindamycin only on GBSisolates from penicillin-allergic women who are considered a high riskfor anaphylaxis. Treatment with vancomycin without additional testingis warranted if resistance to clindamycin is noted. Advance Directives Directive Yes / No Effective Date File Name Unknown Encounters Encounter Practice Location Reason(s) Diagnoses Date Provider Care Team Description For Visit Members Cortez Doe Morbid (severe) May-2 Bronwyn Referring In Womens obesity due to 3-201 Josie. Provider: Zenon SIMENTAL excess 8 700 Josie PO Box caloriesPrevious Medical Bronwyn L, 1522, Low Transverse Center 700 Fredrick, C-SectionAntelmo Yates, [facility] [place], r for suprvsn of 120, [place] [id number], normal , [facility] 120, [place] third [email or web address] Nader PINO, tel:[phone] weeks gestation [phone] [place], of , [place]. [id number]. tel: tel:[phone] Associates Nader Previous Low May-1 Bronwyn Referring In Womens Transverse 6-201 Josie. Provider: Baldo CanelaSectionAntelmo 8 700 Josie PO Box r for suprvsn of Medical Bronwyn L, 1522, normal , Center 700 Fredrick, third [email or web address] , [facility], weeks gestation 120, [place] [id number], of [facility] 120, [place] Nader PINO, tel: [phone] [facility] [id number] , . [id number]. tel: tel:[phone] Cortez Doe Morbid (severe) May-0 Bronwyn Referring In Womens obesity due to 9-201 Josie. Provider: Zenon SIMENTAL excess 8 700 Josie PO Box caloriesPrevious Medical Bronwyn L, 1522, Low Transverse Center 700 Baldo AlcalaSectionAntelmo Yates, [facility] [place], r For 120, [place] [id number], Screening For Doe, Aaron 120, [place] Streptococcus B35 ODETTENader, tel:+ weeks gestation [phone] [place], of , [place]. [id number]. tel: tel:[phone] [facility] Previous Low Darryl-0 Bronwyn Referring In Womens Ultrasound Transverse 9-201 Josie. Provider: Health PA, C-SectionObesity 8 700 Josie PO Box complicating Medical Bronwyn L, 1522, , third Center 700 [place], trimesterEncounte , [facility] ODETTE, r for suprvsn of 120, Center [id number], normal , Doe, Aaron 120, [place] third [email or web address] Nader PINO, tel:[phone] weeks gestation [phone] [place], of , [place]. [id number]. tel: tel:[phone] [facility] Previous Low Champ-2 Bronwyn Referring In Womens Transverse 5-201 Josie. Provider: Health KAMILLE, C-SectionEncounte 8 700 Josie PO Box r for suprvsn of Medical Bronwyn L, 1522, normal , Center 700 [place], third [email or web address] Dr [facility] Katharine PINO, weeks gestation 120, Center [id number], of Doe, Aaron 120, [place] ODETTENader, tel:+ [phone] [place], , [place] [id number]. tel: tel:[phone] [facility] Previous Low Champ-0 Bronwyn Referring In Womens Transverse 7-201 Josie. Provider: Health KAMILLE, C-SectionEncounte 8 700 Josie PO Box r for suprvsn of Medical Bronwyn L, 1522, normal , Center 700 [place], third [email or web address] Dr [facility] Katharine PINO, weeks gestation 120, Center [id number], of Doe, Aaron 120, [place] Nader PINO, tel:+ [phone] [place], , [place]. [id number]. tel: tel:[phone] [facility] Previous Low Champ-0 Bronwyn Referring In Womens Ultrasound Transverse 7-201 Josie. Provider: Health KAMILLE, C-SectionEncounte 8 700 Josie PO Box r for suprvsn of Medical Bronwyn L, 1522, normal , Center 700 [place], third [id number] Aaron Yates, weeks gestation 120, Center [id number], of Doe, Aaron 120, [place] Nader PINO, tel:[phone] [place], , [place]. [id number]. tel: tel: [phone] [facility] Previous Low May-1 Bronwyn Referring In Womens Transverse 8-201 Josie. Provider: Zenon SIMENTAL, C-SectionEncounte 8 700 Josie PO Box r for suprvsn of Medical Bronwyn L, 1522, normal , Center 700 [place], third [email or web address] Aaron Yates, weeks gestation 120, Center , of Doe, [facility] 120, [place] WANader, tel:[phone] [place], , [place]. [id number]. tel: tel: [phone] Cortez Doe Encounter for Apr-1 Miguel Referring In Womens suprvsn of normal 7-201 Dagoberto. 700 Provider: Zenon SIMENTAL, , second 8 Medical Josie PO Box [email or web address] weeks Center Bronwyn Lowe, 1522, gestation of Aaron Yates, 120, Medical Nader PINO, [place] [id number], [place], Aaron 120, [place] [id number] Nader, tel: , [place]. [place], tel: [phone] [id number] tel:[phone] Cortez Doe Previous Low Mar-1 Bronwyn Referring In Womens Transverse 5-201 Josie. Provider: Health KAMILLE, C-SectionEncounte 8 700 Josie PO Box r for suprvsn of Medical Bronwyn L, 1522, normal , Center 700 [place], second Aaron Yates, [email or web address] weeks 120, Center [id number], gestation of Nader, [facility] 120, [place] Nader PINO, tel:[phone] [place], , [place]. [id number]. tel: tel: [phone] [facility] Previous Low Mar-1 Bronwyn Referring In Womens Ultrasound Transverse 5-201 Josie. Provider: Zenon SIMENTAL, C-SectionEncounte 8 700 Josie PO Box r for suprvsn of Medical Bronwyn L, 1522, normal , Center [address] [place] [address], second Aaron Yates, [email or web address] weeks 120, [place] [id number], gestation of [facility] 120, [place] Nader PINO, tel: [phone] [place], , [place]. [id number]. tel: tel: [phone] [facility] Previous Low Feb-0 Bronwyn Referring In Womens Transverse 6-201 Josie. Provider: Zenon SIMENTAL, C-SectionEncounte 8 700 Josie PO Box r for suprvsn of Medical Bronwyn L, 1522, normal , Center [address] [place] [address], first [email or web address] Aaron Yates, weeks gestation 120, [place] [id number], of Doe, [facility] 120, [place] ODETTE Doe, tel: [phone] [place], , [place]. [id number]. tel: tel: [phone] Associates N[facility] Previous Low James-0 Bronwyn Referring In Womens Transverse 9-201 Josie. Provider: Zenon SIMENTAL, C-SectionEncntr 8 700 Josie PO Box screen for Medical Bronwyn L, 1522, infections w sexl Center [address] [place] [address], mode of Aaron Yates, transmissEncounte 120, [place] [id number], r for screening [facility] 120, [place] for oth Nader PINO, tel: infec/parastc [phone] [place], [facility] [place]. [id number]. for suprvsn of tel: tel:[phone] normal , [phone] first trimesterEncounte r For Other Specified Screening9 [...] Record Payers Payer name Insurance type Covered constitution party ID Authorization(s) [employer] [place] [id number] [employer] [place] [id number] Social History Type Description Quantity Date Captured Alcohol Use Details No Caffeine Use Details Unknown Tobacco Use Status Smoking Status Former smoker Vital Signs Date / Height Weight BMI Pulse Blood Temperature Respiratory Body Head BMI Time: Rate Pressure Rate Surface Circumference percentile Area 2 0 11:32 kg/m AM eter (2) 273.00 49.9 146/94 -2018 lbs 3 mm[Hg] 12:30 kg/m PM eter (2) 273.00 49.9 -2018 lbs 3 12:06 kg/m PM eter (2) Chief Complaint And Reason For Visit Unknown Chief Complaint And Reason For Visit Reason For Referral Reason For Referral Unknown Plan Of Care Date Type Action Status Appointment Alejandra Sanderson BOOKED Appointment Alejandra Sanderson [facility] [place] C/S BOOKED Future Order: Radiology Order Ultrasound OB Follow-up ([id number]) Ordered Future Order: Radiology Order Ultrasound, OB Limited ([id number]) Ordered Future Order: Radiology Order Complete OB Ultrasound > 14 Weeks Ordered ([id number]) Date Type Problem Goal Intervention Status Start [...]
[2018-06-15] MEDS ORDERED: CEFAZOLIN PREMIX (MC ONLY) 2 GM/50 ML BAG IV ONE (06:03)
[2018-06-15] MEDS ORDERED: CITRIC ACID/SODIUM CITRATE 30ml PO ONE (06:03)
[2018-06-15] MEDS ORDERED: CEFAZOLIN 1 G INJECTION IVP ONE (06:03)
[2018-06-15] MEDS ORDERED: FAMOTIDINE PB 20 MG/50 ML BAG IV ONE (06:03)
[2018-06-15] MEDS ORDERED: NOZIN NASAL SWAB NAS ONE ×2 (06:03→08:54)
[2018-06-15] MEDS: LR 1,000 ML IV SCH ×9 (06:21→23:57)
[2018-06-15] MEDS ORDERED: FentaNYL 100 MCG/2 ML INJECTION ONE (06:53)
[2018-06-15] MEDS ORDERED: MORPHINE SULFATE PF 5mg/10ml INJ (Duramorph) ONE (06:55)
--- NOTE | 2018-06-15 07:03 | Anesthesia Preoperative Report ---
Anesthesia Epidural/Spinal Rec - Date and Time Date: 06/15/18 Procedure: Labor Epidural Plan: Epidural - Vital Signs Vital Signs: Temperature 98.9 F 06/15/18 05:43 Pulse Rate 95 06/15/18 05:43 Respiratory Rate 18 06/15/18 05:43 Blood Pressure 133/82 06/15/18 05:43 Pulse Oximetry 97 06/15/18 05:43 /Para: P:1 - Medictaions & Allergies Inpatient Medications: Current Medications Cefazolin Sodium (Kefzol 1 Gm Vial) 1 g IVP PREOP ONE Stop: 06/15/18 06:04 Citric Acid/Sodium Citrate (Oracit) 30 ml PO PREOP ONE Stop: 06/15/18 06:04 Last Admin: 06/15/18 06:54 Dose: 30 ml Cefazolin Sodium/Dextrose (Kefzol Premix (Mc Only)) 2 gm in 50 mls @ 100 mls/ hr IV PREOP ONE Stop: 06/15/18 06:32 Last Admin: 06/15/18 06:55 Dose: 100 mls/hr Famotidine/Sodium Chloride (Pepcid Premix) 20 mg in 50 mls @ 100 mls/hr IV PREOP ONE Stop: 06/15/18 06:32 Last Admin: 06/15/18 06:23 Dose: 100 mls/hr Lactated Ringer's (Lactated Ringers) 1,000 mls @ 150 mls/hr IV .Q6H40M LEEANNE Last Admin: 06/15/18 06:21 Dose: 999 mls/hr Isopropyl Alcohol (Nozin Nasal Swab) 3 each DASH PREOP ONE Stop: 06/15/18 06:04 Last Admin: 06/15/18 06:47 Dose: 3 each Allergies/Adverse Reactions: Allergies Allergy/AdvReac Type Severity Reaction Status Date / Time No Known Allergies Allergy Verified 06/02/18 12:10 - Home Medications Home Medications: Home Medications Medication Instructions Recorded Confirmed Type Pnv No.95/Ferrous Fum/Folic AC 1 each PO DAILY 06/02/18 06/02/18 History [ Tablet] - Medical History Neuro/Musculoskeletal: Denies: Depression Other History: Reports: Now DENIES: Anesthesia Reactions - Surgical History HEENT Surgeries: Reports: Tonsillectomy (2006) GI Surgery/Treatments: Reports: Appendectomy (1997) Reproductive Surgery/Treatment: Reports: Section (2010) Anesthesia Reactions: None Hx Family Anesthesia Reaction: No History of Motion Sickness: No - Social History Smoking Status: Never smoker Second Hand Exposure: No Substance Use Type: does not use Alcohol Intake Frequency: does not drink Hx Chewing Tobacco Use: No - Pertinent Findings Lab Data: CBC and BMP 06/15/18 06:17 EKG Rhythm: Normal Sinus Rhythm - Physical Exam Respiratory Exam: lungs clear Cardiovascular Exam: regular rate and rhythm, no murmur - Airway Assessment Mallampati Score: III TMD: 3 Fingerbreadths Neck Extension: good Overall Assessment: no airway concerns - ASA ASA Score: 2 - Discussion Discussion: Discussed risks/options/alternatives of anesthesia and questions answered. Patient consents. Nursing pain assessment noted. Anesthesia Discussion: spouse Attestation Statement: Prior to the delivery of any anesthetic medication, I examined the patient, developed the plan, obtained the patient's consent and discussed the risk and benefits of the procedure with the patient/guardian.
[2018-06-15] MEDS ORDERED: EPINEPHrine 1mg/ml (1:1000) vial ONE (07:19)
[2018-06-15] MEDS ORDERED: BUPIVACAINE 0.75%/DEXTROSE 8.5% SPINAL 2 ML AMPULE IJ ONE (07:19)
[2018-06-15] MEDS ORDERED: ONDANSETRON 4 MG/2 ML INJECTION ONE (07:35)
[2018-06-15] MEDS: OXYTOCIN BOLUS BAG 30 UNIT/500 ML ML IV SCH (07:40)
[2018-06-15] MEDS ORDERED: LIDOCAINE 2% (100mg/5mL) 5ml PF SDV ONE (07:40)
[2018-06-15] MEDS ORDERED: OXYTOCIN DRIP 30 UNIT/500 ML ML IV SCH ×2 (08:42→14:45)
[2018-06-15] MEDS ORDERED: SIMETHICONE 80 MG CHEWABLE TABLET PO PRN ×2 (08:42→08:54)
[2018-06-15] MEDS ORDERED: HYDROCORTISONE 2.5% CREAM 30gm RECTALLY PRN ×2 (08:42→08:54)
[2018-06-15] MEDS ORDERED: DiphenhydrAMINE 25 MG CAPSULE PO PRN ×2 (08:42→08:54)
[2018-06-15] MEDS ORDERED: CALCIUM CARBONATE Chewable 500mg TABLET PO PRN ×2 (08:42→08:54)
[2018-06-15] MEDS ORDERED: IBUPROFEN 800 MG TABLET PO PRN (08:42)
[2018-06-15] MEDS ORDERED: ACETAMINOPHEN 500 MG TABLET PO PRN ×2 (08:42→08:54)
[2018-06-15] MEDS ORDERED: DOCUSATE CALCIUM 240 MG CAPSULE PO SCH (09:00)
[2018-06-15] MEDS: D5LR 1,000 ML IV SCH ×2 (09:12→22:34)
[2018-06-15] MEDS ORDERED: SIMETHICONE 80 MG CHEWABLE TABLET PO SCH (09:30)
--- NOTE | 2018-06-15 09:35 | Operative Note ---
DATE OF OPERATION 06/15/2018 PREOPERATIVE DIAGNOSIS Term , previous x1, declines . POSTOPERATIVE DIAGNOSIS Term , previous x1, declines . PROCEDURE Repeat low transverse section. SURGEON Josie Barnhart MD AIRCRAFT TIME CLERK Taina Castro, ANESTHESIA Combo spinal/epidural STRIPPER AND TAPER Mark Garcia CRNA EBL 800 mL DESCRIPTION OF PROCEDURE Ms. Sanderson was brought to the OR and given regional chest analgesia to good effect. She was then placed in the supine position with left lateral displacement. A Cain catheter was placed to dependent drain. The abdomen was prepped and draped in the usual sterile fashion. A Pfannenstiel skin incision was made with a sharp knife. This was carried down to fascia. Fascia was incised transversely. Fascia was then tented up. This was bluntly and sharply dissected free of rectus muscles. Rectus muscles were divided and the peritoneum tented up. This was sharply entered and extended vertically. The bladder blade was inserted. The bladder was noted be well below our area of operation. I made a low transverse uterine incision. This was just at the base of the anterior placenta. The amniotic fluid was clear and free-flowing. Baby was delivered in the vertex LOP presentation. There was a loose nuchal cord x1 that was reduced prior to delivery. Baby was bulb suctioned on the abdomen. Cord was doubly clamped and cut and the baby was then given to the pediatric team for care. This is a liveborn male with Apgars of 9/9/9. He weighed 7 pounds 7.2 ounces. The placenta was then manually removed, intact. It had a normal configuration and normal-appearing three-vessel cord. The uterus was exteriorized and the cavity swept clear of membranes. The myometrial incision was reapproximated with a running locking 0 Monocryl. We inspected carefully for hemostasis. This was under good control. We removed gross blood clots from the abdomen and returned the uterus to the abdominal cavity. We reinspected our incision. It remained hemostatic as did the rest of the surgery. We then reapproximated peritoneum with a running nonlocking 2- 0 Vicryl. Fascia was reapproximated with running nonlocking 0 Vicryl. Skin edges were reapproximated with a subcuticular style 3-0 undyed Vicryl. We then used a Dermabond mesh dressing and covered that with a Prevena wound VAC dressing. Counts were correct postoperatively x2 and the urine remained clear and free-flowing throughout the procedure. Mrs. Sanderson was then transferred to recovery in stable condition. CARLTON
[2018-06-15] MEDS: IBUPROFEN 800 MG TABLET PO SCH ×3 (09:51→22:35)
[2018-06-15] MEDS: SIMETHICONE 80 MG CHEWABLE TABLET PO SCH ×4 (11:57→22:36)
[2018-06-15] MEDS: DOCUSATE CALCIUM 240 MG CAPSULE PO SCH (11:57)
[2018-06-15 14:03] VITALS: BMI 52.3
[2018-06-15] MEDS: HYDROCODONE/APAP 5mg/325mg TABLET PO PRN ×3 (14:17→23:32)
[2018-06-15] MEDS ORDERED: METHYLERGONOVINE 0.2 MG/ML INJECTION IM PRN (14:29)
[2018-06-15] MEDS ORDERED: CARBOPROST 250 MCG/ML INJECTION IM PRN (14:38)
[2018-06-15] MEDS: METHYLERGONOVINE 0.2 MG TABLET PO SCH ×2 (17:11→23:32)
[2018-06-15] MEDS: NOZIN NASAL SWAB NAS SCH ×2 (17:13→23:32)
[2018-06-15] MEDS: OXYTOCIN DRIP 30 UNIT/500 ML ML IV SCH (20:19)
[2018-06-16] MEDS: LR 1,000 ML IV SCH ×3 (01:25→03:32)
[2018-06-16] MEDS: IBUPROFEN 800 MG TABLET PO SCH ×3 (01:29→16:52)
[2018-06-16] MEDS: OXYTOCIN DRIP 30 UNIT/500 ML ML IV SCH (01:33)
[2018-06-16] MEDS: OXYTOCIN BOLUS BAG 30 UNIT/500 ML ML IV SCH (03:52)
[2018-06-16] MEDS: METHYLERGONOVINE 0.2 MG TABLET PO SCH ×3 (05:24→16:53)
[2018-06-16] MEDS: HYDROCODONE/APAP 5mg/325mg TABLET PO PRN ×5 (06:45→23:17)
--- NOTE | 2018-06-16 08:36 | OB/GYN Progress Note ---
OB-PP Progress Note - General PPD1 POD:: POD1 Maternal Group B Strep: Negative Maternal Rh: positive Maternal Rubella Status: Immune - Subjective Date: 06/16/18 Lochia: Minimal Pain: controlled Voiding: not voiding Voiding: Cain just removed has had adequate UOP over past 4 hours Nausea or Vomiting Present: No - Objective Vital Signs: Last Vital Signs Temp 98.1 F 06/16/18 04:43 Pulse 97 06/16/18 04:43 Resp 18 06/16/18 04:43 BP 141/91 H 06/16/18 04:43 Pulse Ox 99 06/16/18 04:43 Urine Output: good General: alert and oriented Cardiovascular: regular rate,rhythm Respiratory: non-labored Incision: normal, dressed Incision: Wound Vac in place Extremities: non-tender Laboratory: Laboratory Results - last 24 hr 06/15/18 06/15/18 06/15/18 06:17 13:05 17:30 WBC 10.7 10.6 RBC 3.90 L 3.54 L Hgb 10.8 L D 9.9 L Hct 32.4 L D 29.3 L MCV 83.1 82.8 MCH 27.7 28.0 MCHC 33.3 33.8 RDW Std Deviation 42.7 41.9 Plt Count 259 223 MPV 10.4 10.1 Blood Type O Positive Antibody Screen Negative Crossmatch ([facility]) See Detail 06/16/18 05:59 WBC 7.7 RBC 2.96 L Hgb 8.1 L D Hct 24.8 L D MCV 83.8 MCH 27.4 MCHC 32.7 RDW Std Deviation 41.9 Plt Count 184 MPV 10.2 Blood Type Antibody Screen Crossmatch ([facility]) - Assessment Assessment: SP, Repeat C/S, PP Hemorrhage Comments: Bleeding controlled and now normal lochia Hgb 8.1 asymptomatic. Start FeSO4 BID with Vit c. continue Methergine PO x 2 more doses. - Plan Plan: routine care
[2018-06-16] MEDS ORDERED: ASCORBIC ACID 500 MG TABLET PO SCH ×2 (09:00→12:00)
[2018-06-16] MEDS: DOCUSATE CALCIUM 240 MG CAPSULE PO SCH (11:36)
[2018-06-16] MEDS: SIMETHICONE 80 MG CHEWABLE TABLET PO SCH ×3 (11:36→21:07)
[2018-06-16] MEDS ORDERED: FERROUS SULFATE 324 MG TABLET PO SCH (12:00)
[2018-06-16] MEDS: NOZIN NASAL SWAB NAS SCH (23:22)
[2018-06-16 23:26] VITALS: O2SAT 98
[2018-06-17] MEDS: IBUPROFEN 800 MG TABLET PO SCH (03:50)
[2018-06-17] MEDS: HYDROCODONE/APAP 5mg/325mg TABLET PO PRN (08:41)
[2018-06-17] MEDS: DOCUSATE CALCIUM 240 MG CAPSULE PO SCH (08:41)
[2018-06-17] MEDS: SIMETHICONE 80 MG CHEWABLE TABLET PO SCH (08:42)
[2018-06-17 11:38] VITALS: BP 138/71; PULSE 104; RESP 18; TEMP 98.2
--- NOTE | 2018-06-17 11:38 | Progress Note ---
OB PP Progress Note Free Text - Date Date: 06/17/18 - Progress Note Progress Note: POD2 Desires dc vss af no dizziness disc taking iron daily and keeping on pnv inst reviewed has f/u appt Wednesday
== END 2018-06-17 12:15 | disposition home or self-care (01) | DRG 765 ==
LOC: MC 05:35
PROVIDERS: ADMIT Obstetrics & Gynecology; ATTEND Obstetrics & Gynecology